=== PATIENT | male | born 1980 | race Caucasian/White ===

== ENCOUNTER 2016-12-22 07:39 | Emergency (ER) | payer MEDICAID ==
[~2016-12-22] VITALS: Ht 167.6 cm; Wt 81.8 kg
[~2016-12-22 07:39] MED LIST: DIVA500T2 PO; LEVE500T53 PO; seizure med PO
[2016-12-22 07:43] VITALS: BP 131/78
== END 2016-12-22 08:45 | disposition home or self-care (01) ==
LOC: ED 08:39
DX: K02.9 Dental caries, unspecified (principal); Z88.0 Allergy status to penicillin
CPT/HCPCS: 99283

== ENCOUNTER 2017-03-11 18:37 | Emergency (ER) | payer MEDICAID ==
[~2017-03-11] VITALS: Ht 167.6 cm; Wt 75.7 kg
[2017-03-11 18:45] VITALS: BP 111/73
== END 2017-03-11 20:07 | disposition home or self-care (01) ==
LOC: ED 19:45
DX: M24.541 Contracture, right hand (principal); Z88.0 Allergy status to penicillin
CPT/HCPCS: 29125

== ENCOUNTER 2018-03-23 15:51 | Emergency (ER) | payer MEDICAID ==
[~2018-03-23] VITALS: Ht 167.6 cm; Wt 76.0 kg
[2018-03-23] MEDS ORDERED: DIAZEPAM 5 MG TABLET PO ONE (16:30)
[2018-03-23] MEDS ORDERED: KETOROLAC 30 MG/1 ML IM ONE (16:30)
[2018-03-23] MEDS ORDERED: KETOROLAC 30 MG/1 ML ONE (16:32)
[2018-03-23] MEDS ORDERED: DIAZEPAM 5 MG TABLET ONE (16:32)
[2018-03-23 16:56] VITALS: BP 118/70
== END 2018-03-23 16:58 | disposition home or self-care (01) ==
LOC: ED 16:52
DX: S39.012A Strain of muscle, fascia and tendon of lower back, initial encounter (principal); S29.012A Strain of muscle and tendon of back wall of thorax, initial encounter; F17.200 Nicotine dependence, unspecified, uncomplicated; X58.XXXA Exposure to other specified factors, initial encounter; Y93.89 Activity, other specified; Y92.89 Other specified places as the place of occurrence of the external cause; Y99.8 Other external cause status
CPT/HCPCS: 99283

== ENCOUNTER 2018-06-15 21:52 | Emergency (ER) | payer MEDICAID ==
[~2018-06-15] VITALS: Ht 167.6 cm; Wt 81.1 kg
[2018-06-15 21:56] VITALS: BP 118/80
== END 2018-06-15 22:57 | disposition home or self-care (01) ==
LOC: ED 22:22
DX: M65.331 Trigger finger, right middle finger (principal); F31.9 Bipolar disorder, unspecified; F90.9 Attention-deficit hyperactivity disorder, unspecified type
CPT/HCPCS: 99283

== ENCOUNTER 2018-06-26 18:34 | Emergency (ER) | payer MEDICAID ==
[~2018-06-26] VITALS: Ht 167.6 cm; Wt 81.0 kg
[2018-06-26 18:48] VITALS: BP 133/78
== END 2018-06-26 19:40 | disposition home or self-care (01) ==
LOC: ED 19:32
DX: J02.8 Acute pharyngitis due to other specified organisms (principal); B97.89 Other viral agents as the cause of diseases classified elsewhere; R19.7 Diarrhea, unspecified; F90.9 Attention-deficit hyperactivity disorder, unspecified type; F31.9 Bipolar disorder, unspecified; F43.10 Post-traumatic stress disorder, unspecified; F17.200 Nicotine dependence, unspecified, uncomplicated; Z88.1 Allergy status to other antibiotic agents
CPT/HCPCS: 87081; 87880; 99284

== ENCOUNTER 2018-08-10 20:48 | Emergency (ER) | payer MEDICAID ==
[~2018-08-10] VITALS: Ht 167.6 cm; Wt 80.0 kg
[2018-08-10 20:50] VITALS: BP 115/76
[2018-08-10] MEDS ORDERED: DIPHENHYDRAMINE 50 MG/ML, 1ML ONE (21:27)
[2018-08-10] MEDS ORDERED: PROMETHAZINE 25 MG/ML, 1ML ONE (21:27)
[2018-08-10] MEDS ORDERED: KETOROLAC 30 MG/1 ML ONE (21:27)
[2018-08-10] MEDS ORDERED: KETOROLAC 30 MG/1 ML IVPush ONE (22:00)
[2018-08-10] MEDS ORDERED: PROMETHAZINE 25 MG/ML, 1ML IM ONE (22:00)
[2018-08-10] MEDS ORDERED: DIPHENHYDRAMINE 50 MG/ML, 1ML IVPush ONE (22:00)
== END 2018-08-10 22:20 | disposition home or self-care (01) ==
LOC: ED 21:50
DX: R51 Headache (principal)
CPT/HCPCS: 93005; 96372; 96374; 96375; 99283; J1200; J1885; J2550

== ENCOUNTER 2018-10-21 06:23 | Emergency (ER) | payer SELFPAY ==
[~2018-10-21] VITALS: Ht 167.6 cm; Wt 86.0 kg
[2018-10-21 06:26] VITALS: BP 131/85
--- NOTE | 2018-10-21 06:30 | NUR ---
PA WITH PT AT THIS TIME
[2018-10-21] MEDS ORDERED: IBUPROFEN 600 MG TABLET ONE (06:36)
--- NOTE | 2018-10-21 06:59 | NUR ---
RECEIVED REPORT FROM JUAN LERMA
[2018-10-21] MEDS ORDERED: IBUPROFEN 200 MG TABLET PO ONE (07:00)
--- NOTE | 2018-10-21 07:33 | NUR ---
AIRSTIRRUP AND CRUTCHES GIVEN TO PT
== END 2018-10-21 07:36 | disposition home or self-care (01) ==
LOC: ED 06:49
DX: S93.401A Sprain of unspecified ligament of right ankle, initial encounter (principal); X50.1XXA Overexertion from prolonged static or awkward postures, initial encounter; Y93.89 Activity, other specified; Y92.410 Unspecified street and highway as the place of occurrence of the external cause; Y99.8 Other external cause status
CPT/HCPCS: 99283

== ENCOUNTER 2018-11-05 14:49 | Emergency (ER) | payer MEDICAID, OTHER ==
[~2018-11-05] VITALS: Ht 167.6 cm; Wt 83.8 kg
[2018-11-05] MEDS ORDERED: KETOROLAC 30 MG/1 ML ONE (17:16)
[2018-11-05] MEDS ORDERED: DIPHENHYDRAMINE 25 MG CAPSULE ONE (17:16)
[2018-11-05] MEDS ORDERED: METOCLOPRAMIDE 10MG TABLET ONE (17:16)
[2018-11-05] MEDS ORDERED: KETOROLAC 30 MG/1 ML IM ONE (17:30)
[2018-11-05] MEDS ORDERED: DIPHENHYDRAMINE 25 MG CAPSULE PO ONE (17:30)
[2018-11-05] MEDS ORDERED: METOCLOPRAMIDE 10MG TABLET PO ONE (17:30)
--- NOTE | 2018-11-05 17:44 | NUR ---
THIS IS A 38 YO MALE WHO PRESENTS TO THE ER C/O MIGRAINE SINCE LAST NIGHT ONE EPISODE OF N/V. PT REPORTS CONT NEGRO. HX OF SAME. PT AO X 4. PERRLA. FACE EQUAL BILATERALLY. SKIN PWD. RESP EVEN AND EQAUL. PT MEDICATED ORDERED FOR MIGRAINE. ROOM MADE QUIET AND DARK. SIGNIFICANT OTHER AT BEDSIDE. CALL LIGHT WITHIN REACH. WILL CONT TO MONITOR PT.
--- NOTE | 2018-11-05 18:21 | NUR ---
PT CURRENTLY SLEEPING ON GURNEY. PT REPORTS HIS HAD HAS RESOLVED. PT AO X 4. SKIN PWD. RESP EVEN AND EQAUL. AT BEDSIDE. CALL LIGHT WITHIN REACH. WILL CONT TO MONITOR PT.
[2018-11-05 18:58] VITALS: BP 114/64
== END 2018-11-05 19:00 | disposition home or self-care (01) ==
LOC: ED 17:42
DX: G43.019 Migraine without aura, intractable, without status migrainosus (principal); F31.9 Bipolar disorder, unspecified; F90.9 Attention-deficit hyperactivity disorder, unspecified type; F43.10 Post-traumatic stress disorder, unspecified
CPT/HCPCS: 99283

== ENCOUNTER 2019-02-02 02:04 | Emergency (ER) | payer MEDICAID ==
[~2019-02-02] VITALS: Ht 167.6 cm; Wt 89.4 kg
[2019-02-02 02:08] VITALS: BP 123/78
== END 2019-02-02 02:49 | disposition home or self-care (01) ==
LOC: ED 02:16
DX: J20.8 Acute bronchitis due to other specified organisms (principal); F31.9 Bipolar disorder, unspecified; F41.9 Anxiety disorder, unspecified; F43.10 Post-traumatic stress disorder, unspecified; F17.210 Nicotine dependence, cigarettes, uncomplicated
CPT/HCPCS: 99281; 99406

== ENCOUNTER 2019-03-17 23:29 | Emergency (ER) | payer MEDICAID ==
[~2019-03-17] VITALS: Ht 167.6 cm; Wt 79.4 kg
[2019-03-17 23:30] VITALS: BP 114/66
== END 2019-03-18 00:28 | disposition home or self-care (01) ==
LOC: ED 23:58
DX: M79.605 Pain in left leg (principal); Z72.9 Problem related to lifestyle, unspecified; F17.210 Nicotine dependence, cigarettes, uncomplicated; X58.XXXA Exposure to other specified factors, initial encounter; Y93.E1 Activity, personal bathing and showering; Y92.009 Unspecified place in unspecified non-institutional (private) residence as the place of occurrence of the external cause; Y99.8 Other external cause status
CPT/HCPCS: 99282

== ENCOUNTER 2019-08-25 12:36 | Emergency (ER) | payer MEDICAID ==
[~2019-08-25] VITALS: Ht 167.6 cm; Wt 83.6 kg
[2019-08-25 12:50] VITALS: BP 127/74
--- NOTE | 2019-08-25 13:03 | NUR ---
PATIENT BROUGHT BACK FROM TRIAGE WITH CHIEF COMPLAINT OF RIGHT MIDDLE "TRIGGER" FINGER FOR OVER THE PAST YEAR. DUE TO INSURANCE CHANGES UNABLE TO HAVE SURGERY BY [facility]. WAITING TO SET UP SURGERY WITH [facility] HOWEVER DUE TO PAIN DECIDED TO BE EVALUATED AT ED.
[2019-08-25] MEDS ORDERED: IBUPROFEN 800 MG TABLET PO ONE (13:30)
[2019-08-25] MEDS ORDERED: IBUPROFEN 200 MG TABLET ONE (13:39)
== END 2019-08-25 14:45 | disposition home or self-care (01) ==
LOC: ED 14:20
DX: M65.841 Other synovitis and tenosynovitis, right hand (principal)
CPT/HCPCS: 29130; 99283

== ENCOUNTER 2019-09-24 18:04 | Emergency (ER) | payer MEDICAID ==
[~2019-09-24] VITALS: Ht 167.6 cm; Wt 84.6 kg
[2019-09-24 18:19] VITALS: BP 134/75
[2019-09-24 18:47] LABS: RAPID INFLUENZA A Negative (Negative); RAPID INFLUENZA B Negative (Negative)
--- NOTE | 2019-09-24 19:06 | NUR ---
CXR/SWABS NEG. RECHEKC.
== END 2019-09-24 19:25 | disposition home or self-care (01) ==
LOC: ED 19:15
DX: J06.9 Acute upper respiratory infection, unspecified (principal); G40.909 Epilepsy, unspecified, not intractable, without status epilepticus; F17.200 Nicotine dependence, unspecified, uncomplicated
CPT/HCPCS: 71046; 87400; 99284

== ENCOUNTER 2019-10-21 09:53 | Emergency (ER) | payer MEDICAID ==
[~2019-10-21] VITALS: Ht 167.6 cm; Wt 83.2 kg
[2019-10-21 09:54] VITALS: BP 119/73
[2019-10-21] MEDS ORDERED: DIPH,PERTUSS(ACELL),TET VAC/PF 0.5 ML IM-VACC ONE ×2 (10:21→10:30)
== END 2019-10-21 11:14 | disposition home or self-care (01) ==
LOC: ED 11:11
DX: L73.9 Follicular disorder, unspecified (principal); R21 Rash and other nonspecific skin eruption; M79.644 Pain in right finger(s); F17.200 Nicotine dependence, unspecified, uncomplicated
CPT/HCPCS: 90471; 90715; 99283

== ENCOUNTER 2020-03-14 17:48 | Emergency (ER) | payer MEDICAID ==
[~2020-03-14] VITALS: Ht 167.6 cm; Wt 82.0 kg
[2020-03-14 17:53] VITALS: BP 128/79
[2020-03-14] MEDS ORDERED: ONDANSETRON ODT 4 MG ONE (18:24)
[2020-03-14] MEDS ORDERED: ONDANSETRON ODT 4 MG PO ONE (18:30)
[2020-03-14 18:42] LABS: BASOPHILS # (AUTO) 0.04 x10^3/uL (0-0.1); BASOPHILS % (AUTO) 1 % (0-1); EOSINOPHILS # (AUTO) 0.33 x10^3/uL (0-0.4); EOSINOPHILS % (AUTO) 6 % (1-7); LYMPHOCYTES # (AUTO) 1.58 x10^3/uL (1-3.4); LYMPHOCYTES % (AUTO) 28 % (22-44); MD NO; MEAN CORPUSCULAR HEMOGLOBIN 29.7 pg (27.5-34.5); MEAN CORPUSCULAR HGB CONC 33.4 g/dL (33.2-36.2); MEAN PLATELET VOLUME 9.2 fL (7.4-10.4); MONOCYTES # (AUTO) 0.34 x10^3/uL (0.2-0.8); MONOCYTES % (AUTO) 6 % (2-9); NEUTROPHILS # (AUTO) 3.26 x10^3/uL (1.8-6.8); NEUTROPHILS % (AUTO) 59 % (42-75); PLATELET COUNT 208 x10^3/uL (130-400); RED BLOOD COUNT 5.06 x10^6/uL (4.38-5.82); RED CELL DISTRIBUTION WIDTH 12.8 % (9.4-14.8)
[2020-03-14 18:49] LABS: CHLORIDE 108 mmol/L (98-107)
[2020-03-14 18:54] LABS: ALANINE AMINOTRANSFERASE 71 U/L (12-78); ALKALINE PHOSPHATASE 76 U/L (45-117); CREATININE 1.09 mg/dL (0.7-1.3); TOTAL PROTEIN 7.5 g/dL (6.4-8.2)
[2020-03-14 19:12] LABS: ANION GAP 8 mmol/L (5-15)
== END 2020-03-14 19:30 | disposition home or self-care (01) ==
LOC: ED 19:12
DX: A09 Infectious gastroenteritis and colitis, unspecified (principal); R11.2 Nausea with vomiting, unspecified; G43.909 Migraine, unspecified, not intractable, without status migrainosus; F17.200 Nicotine dependence, unspecified, uncomplicated
CPT/HCPCS: 36415; 80053; 83690; 85025; 99283; Q0162

== ENCOUNTER 2021-05-01 20:33 | Emergency (ER) | payer MEDICAID ==
[~2021-05-01] VITALS: Ht 170.2 cm; Wt 87.4 kg
[2021-05-01] MEDS ORDERED: LIDOCAINE 1%, 10ML INFIL ONE (21:00)
[2021-05-01] MEDS ORDERED: DIPH,PERTUSS(ACELL),TET VAC/PF 0.5 ML IM-VACC ONE ×2 (21:00→22:52)
[2021-05-01] MEDS ORDERED: LIDOCAINE-MPF 2% ,5ML ONE (22:08)
--- NOTE | 2021-05-01 22:21 | NUR ---
AT BEDSIDE IRIIGATING AND SUTURING WOUND
[2021-05-01] MEDS ORDERED: CEPHALEXIN 500 MG CAPSULE ONE (22:51)
[2021-05-01] MEDS ORDERED: HYDROcodone/APAP 5/325 TABLET ONE (22:52)
[2021-05-01] MEDS ORDERED: HYDROcodone/APAP 5/325 TABLET PO ONE (23:00)
[2021-05-01] MEDS ORDERED: CEPHALEXIN 500 MG CAPSULE PO ONE (23:00)
[2021-05-01 23:43] VITALS: BP 118/79
== END 2021-05-01 23:45 | disposition home or self-care (01) ==
LOC: ED 20:45
DX: S61.011A Laceration without foreign body of right thumb without damage to nail, initial encounter (principal); F17.200 Nicotine dependence, unspecified, uncomplicated; W26.9XXA Contact with unspecified sharp object(s), initial encounter; Y93.89 Activity, other specified; Y92.89 Other specified places as the place of occurrence of the external cause; Y99.8 Other external cause status
CPT/HCPCS: 12002; 90471; 90715; 99283